=== PATIENT | female | born 1985 | race Caucasian/White ===

== ENCOUNTER 2016-05-13 08:00 | Outpatient (CLI) | payer MEDICARE, MEDICAID | END 2016-05-13 08:01 | disposition home or self-care (01) | DX: Q90.9 Down syndrome, unspecified (principal); E55.9 Vitamin D deficiency, unspecified; E03.9 Hypothyroidism, unspecified ==

== ENCOUNTER 2016-06-11 | Outpatient (CLI) | payer MEDICARE, MEDICAID | END 2016-06-11 05:59 | disposition critical access hospital (66) | DX: R55 Syncope and collapse (principal) | CPT/HCPCS: A0425; A0427 ==

== ENCOUNTER 2016-06-11 06:15 | Emergency (ER) | payer MEDICARE, MEDICAID ==
[2016-06-11] MEDS ORDERED: SODIUM CHLORIDE 0.9% 1,000 ML IV ONE (07:15)
== END 2016-06-11 09:50 | disposition home or self-care (01) ==
DX: R55 Syncope and collapse (principal); J18.9 Pneumonia, unspecified organism; J02.9 Acute pharyngitis, unspecified; Q23.3 Congenital mitral insufficiency; Q90.9 Down syndrome, unspecified; E03.9 Hypothyroidism, unspecified

== ENCOUNTER 2017-05-23 07:46 | Outpatient (CLI) | payer MEDICARE, MEDICAID ==
[2017-05-23 12:28] LABS: BASOPHILS # (AUTO) 0.1 10^3/uL (0.0-0.1); EOSINOPHILS % (AUTO) 0.5 %; HGB - HEMOGLOBIN 13.5 g/dL (12.0-16.0); LYMPHOCYTES # (AUTO) 1.5 10^3/uL (1.5-3.5); LYMPHOCYTES % (AUTO) 24.3 %; MEAN CORPUSCULAR HEMOGLOBIN 36.2 pg (27.0-31.0); MEAN CORPUSCULAR HGB CONC 34.7 g/dL (32.0-36.0); MEAN CORPUSCULAR VOLUME 104.5 fL (81.0-99.0); MONOCYTES # (AUTO) 0.5 10^3/uL (0.0-1.0); MONOCYTES % (AUTO) 8.4 %; NEUTROPHILS # (AUTO) 4.1 10^3/uL (1.5-6.6); NEUTROPHILS % (AUTO) 65.8 %; PLT - PLATELET COUNT 159 10^3/uL (130-450); RED BLOOD COUNT 3.72 10^6/uL (4.20-5.40); RED CELL DISTRIBUTION WIDTH 12.7 % (12.0-15.0); WHITE BLOOD COUNT 6.3 x10^3/uL (4.8-10.8)
[2017-05-23 12:53] LABS: ALBUMIN 3.5 g/dL (3.2-5.5); ALBUMIN/GLOBULIN RATIO 0.9 (1.0-2.2); ALKALINE PHOSPHATASE 67 IU/L (42-121); ALT ALANINE AMINOTRANSFERASE 22 IU/L (10-60); AST ASPARTATE AMINOTRANSFERASE 22 IU/L (10-42); BILIRUBIN,TOTAL 0.4 mg/dL (0.2-1.0); BUN - BLOOD UREA NITROGEN 17 mg/dL (6-20); CALCIUM 8.4 mg/dL (8.5-10.3); CARBON DIOXIDE - CO2 24 mmol/L (21-32); CHLORIDE 107 mmol/L (101-111); CHOL/HDL RATIO 2.5 (<4.4); CHOLESTEROL 116 mg/dL; CREATININE 0.9 mg/dL (0.4-1.0); GFR - MDRD 74 (>89); GLUCOSE 83 mg/dL (70-100); HDL CHOLESTEROL 46 mg/dL; LDL CHOLESTEROL,CALCULATED 60 mg/dL; LDL/HDL RATIO 1.3 (<4.4); SODIUM 135 mmol/L (135-145); TOTAL PROTEIN 7.6 g/dL (6.7-8.2); VLDL CHOLESTEROL 10 mg/dL
[2017-05-23 12:54] LABS: THYROID STIMULATING HORMONE 3.75 uIU/mL (0.34-5.60)
[2017-05-23 12:56] LABS: FREE T4 (FREE THYROXINE) 1.09 ng/dL (0.58-1.64)
== END 2017-05-23 07:47 | disposition home or self-care (01) ==
LOC: LAB.N 07:46
PROVIDERS: ATTEND Family Medicine
DX: Q90.9 Down syndrome, unspecified (principal); E03.9 Hypothyroidism, unspecified; D53.9 Nutritional anemia, unspecified
CPT/HCPCS: 36415; 80053; 80061; 83721; 84439; 84443; 85025

== ENCOUNTER 2017-12-08 01:30 | Emergency (ER) | payer MEDICARE, MEDICAID ==
[2017-12-08 01:39] VITALS: BP 133/75
[2017-12-08] MEDS ORDERED: ALBUTEROL NEB 2.5 MG/3 ML INH STA (02:12)
[2017-12-08 02:20] LABS: BILIRUBIN,URINE NEGATIVE (NEGATIVE); GLUCOSE, URINE (UA) NEGATIVE (NEGATIVE); KETONES,URINE (UA) NEGATIVE (NEGATIVE); LEUKOCYTE ESTERASE, URINE TRACE (NEGATIVE); NITRITE,URINE NEGATIVE (NEGATIVE); OCCULT BLOOD,URINE TRACE-INTA (NEGATIVE); PROTEIN,URINE TRACE mg/dL (NEGATIVE); UROBILINOGEN,URINE 0.2 (NORMAL) E.U./dL (NORMAL)
[2017-12-08 02:21] LABS: CLARITY,URINE CLEAR (CLEAR)
[2017-12-08 02:27] LABS: BACTERIA,URINE Few /HPF (None Seen); RBC,URINE 0-5 /HPF (0-5); SQUAMOUS EPITHELIAL CELL,UR MOD Squamous (<= Few)
[2017-12-08 02:32] LABS: BASOPHILS # (AUTO) 0.4 10^3/uL (0.0-0.1); BASOPHILS % (AUTO) 2.7 %; EOSINOPHILS % (AUTO) 0.1 %; HGB - HEMOGLOBIN 13.6 g/dL (12.0-16.0); LYMPHOCYTES # (AUTO) 0.8 10^3/uL (1.5-3.5); LYMPHOCYTES % (AUTO) 5.8 %; MEAN CORPUSCULAR HGB CONC 34.7 g/dL (32.0-36.0); MEAN CORPUSCULAR VOLUME 103.7 fL (81.0-99.0); MEAN PLATELET VOLUME 7.7 fL (7.9-10.8); MONOCYTES # (AUTO) 0.7 10^3/uL (0.0-1.0); NEUTROPHILS # (AUTO) 11.8 10^3/uL (1.5-6.6); NEUTROPHILS % (AUTO) 86.4 %; PLT - PLATELET COUNT 188 10^3/uL (130-450); RED BLOOD COUNT 3.78 10^6/uL (4.20-5.40); RED CELL DISTRIBUTION WIDTH 12.6 % (12.0-15.0); WHITE BLOOD COUNT 13.6 x10^3/uL (4.8-10.8)
[2017-12-08 02:40] LABS: ALBUMIN 3.7 g/dL (3.2-5.5); ALBUMIN/GLOBULIN RATIO 0.7 (1.0-2.2); BILIRUBIN,TOTAL 1.1 mg/dL (0.2-1.0); CALCIUM 8.8 mg/dL (8.5-10.3); CREATININE 0.9 mg/dL (0.4-1.0); TOTAL PROTEIN 8.7 g/dL (6.7-8.2)
--- NOTE | 2017-12-08 03:00 | XRAY Report ---
Procedure Date: 12/08/2017 Accession Number: [id number] / [id number] Procedure: XR - Chest 1 View X-Ray CPT Code: 63373 FULL RESULT: EXAM: CHEST RADIOGRAPHY EXAM DATE: 12/08/2017 02:48 AM. CLINICAL HISTORY: Shortness of breath, history of aortic and mitral regurgitation. COMPARISON: CHEST 2 VIEW PA/LAT 06/11/2016. TECHNIQUE: 1 view. FINDINGS: Lungs/Pleura: Diffuse mild interstitial opacities. No large effusion. No gross pneumothorax. Mediastinum: Mild cardiomegaly. No mediastinal shift. Other: Low volumes. Prior median sternotomy. Stable scoliosis. IMPRESSION: Mild CHF and low volumes. RADIA
--- NOTE | 2017-12-08 03:50 | ED Physician Documentation ---
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 Mother states that the symptoms started over the last few days. Mother states that the patient gets yearly echos and has cardiac follow up in 2 weeks. Review of Systems Constitutional: denies: Fever, Chills Eyes: reports: Reviewed and negative Ears: reports: Reviewed and negative Cardiac: reports: Pedal edema. denies: Chest pain / pressure, Palpitations Respiratory: reports: Dyspnea GI: reports: Abdominal Pain. denies: Nausea, Vomiting, Constipation, Diarrhea : reports: Frequency Musculoskeletal: reports: Back pain Neurologic: denies: Focal weakness PD PAST MEDICAL HISTORY - Past Medical History Past Medical History: Yes Cardiovascular: None Respiratory: None Endocrine/Autoimmune: None, HyPOthyroidism Musculoskeletal: Scoliosis Other Past Medical History: Mitral valve leak & Aortic valve leak. - Past Surgical History Past Surgical History: Yes - Present Medications Home Medications: Ambulatory Orders Medication Instructions Recorded Confirmed Multivit, Iron, Min #4, FA 1 each PO DAILY 08/28/12 06/11/16 [Multichew Chewable Tablet] Simvastatin [Zocor] 10 mg PO DAILY 08/28/12 06/11/16 Cetyl Alc/Stearyl Alc/Pg/Sls 1 applic TOP BID 09/15/14 06/11/16 [Cetaphil Cream] Cholecalciferol (Vitamin D3) 1 tab PO DAILY 09/15/14 06/11/16 [Vitamin D-3] Levothyroxine Sodium 1 tab PO DAILY 09/15/14 06/11/16 Amoxicillin 500 mg PO TID 06/11/16 06/11/16 Ascorbic Acid [Vitamin C] 500 mg PO DAILY 06/11/16 06/11/16 Ethynodiol D-Ethinyl Estradiol 1 tab PO DAILY 06/11/16 06/11/16 [Zovia 1-35E Tablet] Cephalexin [Keflex] 500 mg PO BID 7 Days capsule 12/08/17 - Allergies Allergies/Adverse Reactions: Allergies Allergy/AdvReac Type Severity Reaction Status Date / Time adhesive AdvReac Rash Verified 09/15/14 04:47 - Social History Does the pt smoke?: No Smoking Status: Never smoker Does the pt drink ETOH?: No Does the pt have substance abuse?: No - Immunizations Immunizations are current?: Yes - POLST Patient has POLST: No PD ED PE NORMAL - Vitals Vital signs reviewed: Yes - General General: Alert and oriented X 3 - HEENT HEENT: Atraumatic - Abdomen Abdomen: Soft, Non tender, Non distended - Neuro Neuro: Alert and oriented X 3, No motor deficit Eye Opening: Spontaneous PD ED PE EXPANDED - Neck Neck: JVD present - Cardiac Cardiac: Murmur Present - Respiratory Respiratory: Decreased breath sounds, Right lower lobe, Left lower lobe - Back Back: CVA TTP right Results - Vitals Vitals: Vital Signs - 24 hr 12/08/17 12/08/17 01:36 02:25 Temperature 36.6 C Heart Rate 99 84 Respiratory 18 22 Rate Blood Pressure 133/75 H O2 Saturation 94 Oxygen O2 Source Room air - Labs Labs: Laboratory Tests 12/08/17 12/08/17 12/08/17 02:10 02:20 02:20 WBC 13.6 H RBC 3.78 L Hgb 13.6 Hct 39.2 MCV 103.7 H MCH 36.0 H MCHC 34.7 RDW 12.6 Plt Count 188 MPV 7.7 L Neut # (Auto) 11.8 H Lymph # (Auto) 0.8 L [place] # (Auto) 0.7 Eos # (Auto) 0.0 Baso # (Auto) 0.4 H Absolute Nucleated RBC 0.00 Nucleated RBC % 0.0 Sodium 135 Potassium 3.9 Chloride 102 Carbon Dioxide 24 Anion Gap 9.0 BUN 13 Creatinine 0.9 Estimated GFR (MDRD) 74 L Glucose 148 H Calcium 8.8 Total Bilirubin 1.1 H AST 24 ALT 31 Alkaline Phosphatase 121 B-Natriuretic Peptide Total Protein 8.7 H Albumin 3.7 Globulin 5.0 H Albumin/Globulin Ratio 0.7 L Lipase 27 Urine Color YELLOW Urine Clarity CLEAR Urine pH 6.0 Ur Specific [place] >=1.030 H Urine Protein TRACE Urine Glucose (UA) NEGATIVE Urine Ketones NEGATIVE Urine Occult Blood TRACE-INTA Urine Nitrite NEGATIVE Urine Bilirubin NEGATIVE Urine Urobilinogen 0.2 (NORMAL) Ur Leukocyte Esterase TRACE H Urine RBC 0-5 Urine WBC 4-5 Ur Squamous Epith Cells MOD Squamous H Urine Bacteria Few Ur Microscopic Review INDICATED Urine Culture Comments NOT INDICATED 12/08/17 02:20 WBC RBC Hgb Hct MCV MCH MCHC RDW Plt Count MPV Neut # (Auto) Lymph # (Auto) [place] # (Auto) Eos # (Auto) Baso # (Auto) Absolute Nucleated RBC Nucleated RBC % Sodium Potassium Chloride Carbon Dioxide Anion Gap BUN Creatinine Estimated GFR (MDRD) Glucose Calcium Total Bilirubin AST ALT Alkaline Phosphatase B-Natriuretic Peptide 146 H Total Protein Albumin Globulin Albumin/Globulin Ratio Lipase Urine Color Urine Clarity Urine pH Ur Specific [place] Urine Protein Urine Glucose (UA) Urine Ketones Urine Occult Blood Urine Nitrite Urine Bilirubin Urine Urobilinogen Ur Leukocyte Esterase Urine RBC Urine WBC Ur Squamous Epith Cells Urine Bacteria Ur Microscopic Review Urine Culture Comments - Rads (name of study) chest x-ray Radiology: Final report received (mild chf) PD MEDICAL DECISION MAKING - ED course Complexity details: reviewed old records, reviewed results, re-evaluated patient , considered differential, d/w patient, d/w family ED course: Patient was seen and examined at bedside. iv access was gained and labs were drawn. patient had a history of asthma and there is a lot of smoke in the air and patient was treated with nebulizer treatment with little relief. chest x- ray was performed and showed mild pulmonary edema. Patient was started on keflex for uti. Patient's ict developer was paged but no call back was received. findings were discussed with the mother who stated she did not want to start and diuretic without cardiology consult. She stated that she would call the doctor today and that she would take the patient home. Patient was saturating well on room air and was stable for discharge with outpatient follow up. - Sepsis Event Vital Signs: Vital Signs - 24 hr 12/08/17 12/08/17 01:36 02:25 Temperature 36.6 C Heart Rate 99 84 Respiratory 18 22 Rate Blood Pressure 133/75 H O2 Saturation 94 Oxygen O2 Source Room air Departure - Departure Disposition: 01 Home, Self Care Clinical Impression: Urinary tract infection, Pulmonary edema Condition: Stable Instructions: ED UTI Cystitis Female Follow-Up: Gravatt,Antoine H, MD [Primary Care Provider] - Tomorrow Prescriptions: Cephalexin [Keflex] 500 mg PO BID 7 Days capsule Comments: Your diagnostics today showed a couple of things. You likely are developing a urinary tract infection for which you are being started on antibiotics. You were also to have fluid in your lungs (pulmonary edema) which is likely causing your daughter's shortness of breath. You may need to move up the appointment with the ict developer. It is important that you call them today to schedule a follow up appointment. You may return to the emergency department at any time for new, worsening or uncontrollable symptoms. Discharge Date/Time: 12/08/17 05:16
[2017-12-08] MEDS ORDERED: cephALEXin 250 MG CAPSULE PO STA (04:30)
[2017-12-08] MEDS ORDERED: ACETAMINOPHEN 325 MG TABLET PO STA (04:30)
== END 2017-12-08 05:16 | disposition home or self-care (01) ==
LOC: ED 01:30
DX: N39.0 Urinary tract infection, site not specified (principal); J81.1 Chronic pulmonary edema; Q90.9 Down syndrome, unspecified
CPT/HCPCS: 36415; 71045; 80053; 81001; 83690; 83880; 85025; 94640; 99283; A9270; 81003; 87086

== ENCOUNTER 2017-12-21 09:57 | Outpatient (CLI) | payer MEDICARE, MEDICAID ==
[2017-12-21 13:43] LABS: BASOPHILS # (AUTO) 0.1 10^3/uL (0.0-0.1); BASOPHILS % (AUTO) 1.3 %; EOSINOPHILS # (AUTO) 0.1 10^3/uL (0.0-0.7); EOSINOPHILS % (AUTO) 1.2 %; HGB - HEMOGLOBIN 14.3 g/dL (12.0-16.0); LYMPHOCYTES # (AUTO) 1.2 10^3/uL (1.5-3.5); LYMPHOCYTES % (AUTO) 18.5 %; MEAN CORPUSCULAR HEMOGLOBIN 35.5 pg (27.0-31.0); MEAN CORPUSCULAR VOLUME 104.4 fL (81.0-99.0); MEAN PLATELET VOLUME 7.6 fL (7.9-10.8); MEAN RETIC VALUE 130.5; MONOCYTES # (AUTO) 0.5 10^3/uL (0.0-1.0); MONOCYTES % (AUTO) 8.1 %; NEUTROPHILS # (AUTO) 4.5 10^3/uL (1.5-6.6); NEUTROPHILS % (AUTO) 70.9 %; PLT - PLATELET COUNT 422 10^3/uL (130-450); RED BLOOD COUNT 4.01 10^6/uL (4.20-5.40); RED CELL DISTRIBUTION WIDTH 12.7 % (12.0-15.0); WHITE BLOOD COUNT 6.3 x10^3/uL (4.8-10.8)
== END 2017-12-21 09:58 | disposition home or self-care (01) ==
LOC: LAB.N 09:57
PROVIDERS: ATTEND Family Medicine
DX: Z76.89 Persons encountering health services in other specified circumstances (principal); I26.99 Other pulmonary embolism without acute cor pulmonale; D53.9 Nutritional anemia, unspecified
CPT/HCPCS: 36415; 82728; 85025; 85044

== ENCOUNTER 2017-12-29 15:37 | Emergency (ER) | payer MEDICARE, MEDICAID ==
--- NOTE | 2017-12-29 16:39 | ED Physician Documentation ---
PD HPI LOWER EXT INJURY - Stated complaint Stated Complaint: R LEG PX/SENT BY DOC - Chief complaint Chief Complaint: General - History obtained from History obtained from: Patient - History of Present Illness PD HPI LOW EXT INJURY LOCATION: Right, Knee (posterior/popliteal area) Type of injury: No: Fall, Twist Timing - onset: How many days ago (2-3 days of pain in right popliteal area. Had been to Cardiology clinic 2 weeks ago with dyspnea and some CHF symptoms.) Worsened by: Palpating, Other (walking) Associated symptoms: No: Weakness, Numbness, Swelling Contributing factors: Anticoagulated (she has been on Xarelto for 2 weeks.) Recently seen: Clinic, Admitted (was in due to PE) Review of Systems Constitutional: denies: Fever, Chills Cardiac: denies: Chest pain / pressure Respiratory: denies: Dyspnea PD PAST MEDICAL HISTORY - Past Medical History Cardiovascular: None Respiratory: None Endocrine/Autoimmune: None, HyPOthyroidism Musculoskeletal: Scoliosis - Past Surgical History Past Surgical History: Yes - Present Medications Home Medications: Ambulatory Orders Medication Instructions Recorded Confirmed Multivit, Iron, Min #4, FA 1 each PO DAILY 08/28/12 06/11/16 [Multichew Chewable Tablet] Cetyl Alc/Stearyl Alc/Pg/Sls 1 applic TOP BID 09/15/14 06/11/16 [Cetaphil Cream] Cholecalciferol (Vitamin D3) 1 tab PO DAILY 09/15/14 06/11/16 [Vitamin D-3] Levothyroxine Sodium 1 tab PO DAILY 09/15/14 06/11/16 Amoxicillin 500 mg PO TID 06/11/16 06/11/16 Enoxaparin [Lovenox] 80 mg SUBQ Q24H #5 syringe 12/29/17 Rivaroxaban [Xarelto] 1 tab PO BID 12/29/17 12/29/17 Warfarin [Coumadin] 5 mg PO DAILY #30 tablet 12/29/17 - Allergies Allergies/Adverse Reactions: Allergies Allergy/AdvReac Type Severity Reaction Status Date / Time adhesive AdvReac Rash Verified 12/29/17 15:44 - Social History Does the pt smoke?: No Smoking Status: Never smoker Does the pt drink ETOH?: No Does the pt have substance abuse?: No - Immunizations Immunizations are current?: Yes - POLST Patient has POLST: No PD ED PE NORMAL - Vitals Vital signs reviewed: Yes - General General: Alert and oriented X 3, No acute distress, Well developed/nourished - Cardiac Cardiac: RRR, No murmur - Respiratory Respiratory: Clear bilaterally - Derm Derm: Normal color, Warm and dry - Extremities Extremities: Other (right calf tender in upper calf/popliteal area) Results - Vitals Vitals: Vital Signs - 24 hr 12/29/17 12/29/17 15:40 18:43 Temperature 36.6 C 36.9 C Heart Rate 88 77 Respiratory 16 12 Rate Blood Pressure 141/79 H 138/87 H O2 Saturation 95 100 Oxygen O2 Source Room air - Rads (name of study) duplex right leg Radiology: Prelim report reviewed (nonocclusive DVT in popliteal area) PD MEDICAL DECISION MAKING - ED course Complexity details: considered differential, d/w patient, d/w family (mom showed how to give injections for the Lovenox. I went with the 1.5 mg/kg daily rather than 1 mg/kg BID to make it easier. ), d/w insurance consultant (Sasha, [facility] - so the concern is that she had had clear U/S of legs in admission that were clear and she has some on U/S with new symptoms, to suggest treatment failure of the Xarelto. So will need to change to another NOAC or Coumadin. Per Cardio wants Coumadin. ) - Sepsis Event Vital Signs: Vital Signs - 24 hr 12/29/17 12/29/17 15:40 18:43 Temperature 36.6 C 36.9 C Heart Rate 88 77 Respiratory 16 12 Rate Blood Pressure 141/79 H 138/87 H O2 Saturation 95 100 Oxygen O2 Source Room air Departure - Departure Disposition: 01 Home, Self Care Clinical Impression: DVT of popliteal vein Qualifiers: Chronicity: acute Laterality: right Qualified Code(s): I82.431 - Acute embolism and thrombosis of right popliteal vein Condition: Stable Record reviewed to determine appropriate education?: Yes Instructions: ED DVT Follow-Up: Antoine Chan MD [Primary Care Provider] - Prescriptions: Enoxaparin [Lovenox] 80 mg SUBQ Q24H #5 syringe Warfarin [Coumadin] 5 mg PO DAILY #30 tablet Comments: Since to have formed a small clot in the leg despite being on the Xarelto, it sounds like it is not effective enough. Stop the Xarelto and instead switch to Coumadin 5 mg daily for now. In order to provide any coagulation over the next several days until the Coumadin becomes effective, we will have you also have a Lovenox injection daily. Follow-up with the cardiology clinic and they will also connect you with the anticoagulation clinic regarding blood testing and dosing for the Coumadin. They should contact you in the next few days. Discharge Date/Time: 12/29/17 18:52
--- NOTE | 2017-12-29 16:40 | Ultrasound Report ---
Reason: pain behind knee for 2-3 days Procedure Date: 12/29/2017 Accession Number: [id number] / [id number] Procedure: US - Duplex Ext Veins Right CPT Code: FULL RESULT: EXAM: RIGHT LOWER EXTREMITY VENOUS ULTRASOUND EXAM DATE: 12/29/2017 04:25 PM. CLINICAL HISTORY: Pain behind knee for 2-3 days. COMPARISON: 05/26/2009 11:13 AM. TECHNIQUE: Real-time sonographic vascular imaging was performed by the hydraulic engineer through the lower extremity utilizing both color-flow and Doppler spectral analysis. Multiple publications sales representative static images were saved for review. FINDINGS: Common Femoral Vein (CFV): Normal. CFV-GSV Junction: Normal. Profunda Femoral Vein (PFV): Normal. Femoral Vein (FV) Prox: Normal. Femoral Vein (FV) Mid: Normal. Femoral Vein (FV) Dist: Normal. Popliteal Vein: Nonocclusive thrombus Posterior Tibial Veins: Normal. Peroneal Veins: Normal. Contralateral Side CFV: Normal. Other: None. IMPRESSION: Nonocclusive thrombus in the right popliteal vein. RADIA The above findings were discussed with Markell Hernandez by Dr. Dayton Jama at 16:38 hrs on 12/29/17.
[2017-12-29] MEDS ORDERED: WARFARIN 5 MG TABLET PO STA (18:14)
[2017-12-29] MEDS ORDERED: ENOXAPARIN 80 MG/0.8 ML SYRINGE SUBQ STA (18:14)
[2017-12-29 18:44] VITALS: BP 138/87
== END 2017-12-29 18:52 | disposition home or self-care (01) ==
LOC: ED 15:37
DX: I82.431 Acute embolism and thrombosis of right popliteal vein (principal); E03.9 Hypothyroidism, unspecified; Z79.01 Long term (current) use of anticoagulants
CPT/HCPCS: 93971; 96372; 99283; 99284; A9270; J1650

== ENCOUNTER 2018-01-02 09:26 | Outpatient (CLI) | payer MEDICARE, MEDICAID ==
[2018-01-02 09:49] LABS: HGB - HEMOGLOBIN 14.1 g/dL (12.0-16.0); MEAN CORPUSCULAR HEMOGLOBIN 35.2 pg (27.0-31.0); MEAN CORPUSCULAR HGB CONC 34.3 g/dL (32.0-36.0); MEAN CORPUSCULAR VOLUME 102.5 fL (81.0-99.0); MEAN PLATELET VOLUME 7.5 fL (7.9-10.8); RED BLOOD COUNT 4.01 10^6/uL (4.20-5.40); RED CELL DISTRIBUTION WIDTH 12.7 % (12.0-15.0); WHITE BLOOD COUNT 4.7 x10^3/uL (4.8-10.8)
[2018-01-02 09:56] LABS: INR 2.2 (0.8-1.2); PT - PROTHROMBIN TIME 24.4 secs (9.9-12.6)
[2018-01-02 09:58] LABS: CREATININE 0.8 mg/dL (0.4-1.0)
== END 2018-01-02 09:27 | disposition home or self-care (01) ==
LOC: LAB 09:26
PROVIDERS: ATTEND Pharmacist Pharmacist Clinician (PhC)/ Clinical Pharmacy Specialist
DX: Z79.01 Long term (current) use of anticoagulants (principal)
CPT/HCPCS: 36415; 82565; 85027; 85610

== ENCOUNTER 2018-01-06 08:42 | Outpatient (CLI) | payer MEDICARE, MEDICAID ==
[2018-01-06 09:46] LABS: INR 2.5 (0.8-1.2); PT - PROTHROMBIN TIME 27.3 secs (9.9-12.6)
== END 2018-01-06 08:43 | disposition home or self-care (01) ==
LOC: LAB 08:42
PROVIDERS: ATTEND Internal Medicine
DX: Z79.01 Long term (current) use of anticoagulants (principal)
CPT/HCPCS: 36415; 85610

== ENCOUNTER 2018-01-09 09:12 | Outpatient (CLI) | payer MEDICARE, MEDICAID ==
[2018-01-09 10:01] LABS: INR 2.7 (0.8-1.2)
== END 2018-01-09 09:13 | disposition home or self-care (01) ==
LOC: LAB 09:12
PROVIDERS: ATTEND Pharmacist Pharmacist Clinician (PhC)/ Clinical Pharmacy Specialist
DX: Z79.01 Long term (current) use of anticoagulants (principal)
CPT/HCPCS: 36415; 85610

== ENCOUNTER 2018-01-16 09:23 | Outpatient (CLI) | payer MEDICARE, MEDICAID | END 2018-01-16 09:24 | disposition home or self-care (01) | LOC: LAB 09:23 | PROVIDERS: ATTEND Pharmacist Pharmacist Clinician (PhC)/ Clinical Pharmacy Specialist | DX: Z79.01 Long term (current) use of anticoagulants (principal) | CPT/HCPCS: 36415; 85610 ==

== ENCOUNTER 2018-01-19 07:57 | Outpatient (CLI) | payer MEDICARE, MEDICAID ==
[2018-01-19 09:29] LABS: INR 3.3 (0.8-1.2); PT - PROTHROMBIN TIME 35.8 secs (9.9-12.6)
== END 2018-01-19 07:58 | disposition home or self-care (01) ==
LOC: LAB 07:57
PROVIDERS: ATTEND Pharmacist Pharmacist Clinician (PhC)/ Clinical Pharmacy Specialist
DX: Z79.01 Long term (current) use of anticoagulants (principal)
CPT/HCPCS: 36415; 85610

== ENCOUNTER 2018-01-23 09:10 | Outpatient (CLI) | payer MEDICARE, MEDICAID ==
[2018-01-23 09:38] LABS: PT - PROTHROMBIN TIME 22.5 secs (9.9-12.6)
== END 2018-01-23 09:11 | disposition home or self-care (01) ==
LOC: LAB 09:10
PROVIDERS: ATTEND Pharmacist Pharmacist Clinician (PhC)/ Clinical Pharmacy Specialist
DX: Z79.01 Long term (current) use of anticoagulants (principal)
CPT/HCPCS: 36415; 85610

== ENCOUNTER 2018-01-30 09:01 | Outpatient (CLI) | payer MEDICARE, MEDICAID ==
[2018-01-30 09:23] LABS: INR 1.9 (0.8-1.2); PT - PROTHROMBIN TIME 21.1 secs (9.9-12.6)
== END 2018-01-30 09:02 | disposition home or self-care (01) ==
LOC: LAB 09:01
PROVIDERS: ATTEND Internal Medicine
DX: Z79.01 Long term (current) use of anticoagulants (principal)
CPT/HCPCS: 36415; 85610

== ENCOUNTER 2018-02-08 08:34 | Outpatient (CLI) | payer MEDICARE, MEDICAID ==
[2018-02-08 09:11] LABS: INR 2.1 (0.8-1.2); PT - PROTHROMBIN TIME 22.9 secs (9.9-12.6)
== END 2018-02-08 08:35 | disposition home or self-care (01) ==
LOC: LAB 08:34
PROVIDERS: ATTEND Pharmacist Pharmacist Clinician (PhC)/ Clinical Pharmacy Specialist
DX: Z79.01 Long term (current) use of anticoagulants (principal)
CPT/HCPCS: 36415; 85610

== ENCOUNTER 2018-02-15 08:33 | Outpatient (CLI) | payer MEDICARE, MEDICAID | END 2018-02-15 08:34 | disposition home or self-care (01) | LOC: LAB 08:33 | PROVIDERS: ATTEND Pharmacist Pharmacist Clinician (PhC)/ Clinical Pharmacy Specialist | DX: Z79.01 Long term (current) use of anticoagulants (principal) | CPT/HCPCS: 36415; 85610 ==

== ENCOUNTER 2018-02-22 08:27 | Outpatient (CLI) | payer MEDICARE, MEDICAID ==
[2018-02-22 09:09] LABS: INR 2.2 (0.8-1.2); PT - PROTHROMBIN TIME 24.1 secs (9.9-12.6)
== END 2018-02-22 08:28 | disposition home or self-care (01) ==
LOC: LAB 08:27
PROVIDERS: ATTEND Pharmacist Pharmacist Clinician (PhC)/ Clinical Pharmacy Specialist
DX: Z79.01 Long term (current) use of anticoagulants (principal)
CPT/HCPCS: 36415; 85610

== ENCOUNTER 2018-03-08 07:34 | Emergency (ER) | payer MEDICARE, MEDICAID ==
[2018-03-08 07:52] VITALS: BP 135/84
--- NOTE | 2018-03-08 08:04 | ED Physician Documentation ---
PD HPI CHEST PAIN - Stated complaint Stated Complaint: CHEST PX - Chief complaint Chief Complaint: Cardiac - History obtained from History obtained from: Patient - History of Present Illness Timing - onset: Last night Timing - onset during: Light activity Timing - duration: Minutes Timing - details: Abrupt onset, Still present, Intermittant Quality: Aching, Sharp Location: Right chest Radiation: No: Jaw, Neck, Back Improved by: Rest Worsened by: Inspiration, Movement. No: Eating, Palpation Associated symptoms: No: Shortness of air, Diaphoresis, Nausea, Vomiting Similar symptoms before: Diagnosis (had some similar pains though with dyspnea, with prior PE. Is on Coumadin.) Recently seen: Not recently seen Review of Systems Constitutional: denies: Fever, Chills Nose: denies: Rhinorrhea / runny nose, Congestion Throat: denies: Sore throat Cardiac: reports: Chest pain / pressure. denies: Palpitations, Pedal edema, Calf pain Respiratory: denies: Cough, Wheezing GI: denies: Abdominal Pain, Nausea, Vomiting Skin: denies: Rash, Lesions Musculoskeletal: denies: Extremity pain Neurologic: denies: Generalized weakness, Focal weakness, Numbness, Near syncope PD PAST MEDICAL HISTORY - Past Medical History Cardiovascular: None Respiratory: None Endocrine/Autoimmune: None, HyPOthyroidism Musculoskeletal: Scoliosis Other Past Medical History: Trisomy 21 - Past Surgical History Past Surgical History: Yes - Present Medications Home Medications: Ambulatory Orders Medication Instructions Recorded Confirmed Multivit, Iron, Min #4, FA 1 each PO DAILY 08/28/12 06/11/16 [Multichew Chewable Tablet] Cetyl Alc/Stearyl Alc/Pg/Sls 1 applic TOP BID 09/15/14 06/11/16 [Cetaphil Cream] Cholecalciferol (Vitamin D3) 1 tab PO DAILY 09/15/14 06/11/16 [Vitamin D-3] Levothyroxine Sodium 1 tab PO DAILY 09/15/14 06/11/16 Amoxicillin 500 mg PO TID 06/11/16 06/11/16 Enoxaparin [Lovenox] 80 mg SUBQ Q24H #5 syringe 12/29/17 Rivaroxaban [Xarelto] 1 tab PO BID 12/29/17 12/29/17 Warfarin [Coumadin] 5 mg PO DAILY #30 tablet 12/29/17 - Allergies Allergies/Adverse Reactions: Allergies Allergy/AdvReac Type Severity Reaction Status Date / Time adhesive AdvReac Rash Verified 12/29/17 15:44 - Social History Does the pt smoke?: No Smoking Status: Never smoker Does the pt drink ETOH?: No Does the pt have substance abuse?: No - Immunizations Immunizations are current?: Yes - POLST Patient has POLST: No PD ED PE NORMAL - Vitals Vital signs reviewed: Yes - General General: Alert and oriented X 3, No acute distress, Well developed/nourished - HEENT HEENT: Ears normal, Pharynx benign - Neck Neck: Supple, no meningeal sign, No adenopathy - Cardiac Cardiac: RRR, No murmur - Respiratory Respiratory: Clear bilaterally, Other (no chestwall tenderness nor rash) - Abdomen Abdomen: Soft, Non tender - Derm Derm: Normal color, Warm and dry, No rash - Extremities Extremities: No deformity, No tenderness to palpate, No edema, No calf tenderness / cord - Neuro Neuro: Alert and oriented X 3, No motor deficit, Normal speech Results - Vitals Vitals: Vital Signs - 24 hr 03/08/18 07:44 Temperature 36.6 C Heart Rate 79 Respiratory 16 Rate Blood Pressure 135/84 H O2 Saturation 98 Oxygen O2 Source Room air - Labs Labs: Laboratory Tests 03/08/18 03/08/18 03/08/18 08:32 08:32 08:32 WBC 5.5 RBC 4.03 L Hgb 14.1 Hct 41.3 MCV 102.5 H MCH 35.0 H MCHC 34.2 RDW 14.0 Plt Count 230 MPV 7.9 Neut # (Auto) 3.9 Lymph # (Auto) 1.1 L [place] # (Auto) 0.5 Eos # (Auto) 0.1 Baso # (Auto) 0.0 Absolute Nucleated RBC 0.00 Nucleated RBC % 0.0 PT 20.0 H INR 1.8 H Sodium 138 Potassium 3.7 Chloride 105 Carbon Dioxide 25 Anion Gap 8.0 BUN 17 Creatinine 0.8 Estimated GFR (MDRD) 84 L Glucose 74 Calcium 9.1 Total Bilirubin 0.7 AST 23 ALT 29 Alkaline Phosphatase 101 Troponin I B-Natriuretic Peptide Total Protein 8.3 H Albumin 4.1 Globulin 4.2 Albumin/Globulin Ratio 1.0 Lipase 38 03/08/18 03/08/18 08:32 08:32 WBC RBC Hgb Hct MCV MCH MCHC RDW Plt Count MPV Neut # (Auto) Lymph # (Auto) [place] # (Auto) Eos # (Auto) Baso # (Auto) Absolute Nucleated RBC Nucleated RBC % PT INR Sodium Potassium Chloride Carbon Dioxide Anion Gap BUN Creatinine Estimated GFR (MDRD) Glucose Calcium Total Bilirubin AST ALT Alkaline Phosphatase Troponin I < 0.04 B-Natriuretic Peptide 107 H Total Protein Albumin Globulin Albumin/Globulin Ratio Lipase - Rads (name of study) chest xray Radiology: Prelim report reviewed, EMP read contemporaneously (normal) PD MEDICAL DECISION MAKING - ED course Complexity details: reviewed results (CXR is clear), considered differential (should not be PE if on Warfarin. CXR to eval for lung changes. ), d/w patient Departure - Departure Disposition: 01 Home, Self Care Clinical Impression: Anterior chest wall pain, Anticoagulant long-term use Condition: Stable Record reviewed to determine appropriate education?: Yes Instructions: ED Chest Pain NonCardiac Follow-Up: Antoine Chan MD [Primary Care Provider] - Comments: Use Tylenol every 4-6 hours if needed for pains. I think the chest pain Whitley is having is musculoskeletal. No signs of heart failure or lung causes of it. Your INR is slightly low at 1.8. I presume he would get direction from the anticoagulation clinic regarding any extra doses or adjustments. If you do not hear from them you could just take an extra dose of your Coumadin tonight and continue the normal dosing. Drink lots of fluids and maintain your current medications. Discharge Date/Time: 03/08/18 10:10
[2018-03-08] MEDS ORDERED: ACETAMINOPHEN 325 MG TABLET PO STA (08:22)
[2018-03-08 08:40] LABS: BASOPHILS % (AUTO) 0.8 %; EOSINOPHILS # (AUTO) 0.1 10^3/uL (0.0-0.7); HGB - HEMOGLOBIN 14.1 g/dL (12.0-16.0); LYMPHOCYTES # (AUTO) 1.1 10^3/uL (1.5-3.5); LYMPHOCYTES % (AUTO) 19.1 %; MEAN CORPUSCULAR HGB CONC 34.2 g/dL (32.0-36.0); MEAN CORPUSCULAR VOLUME 102.5 fL (81.0-99.0); MEAN PLATELET VOLUME 7.9 fL (7.9-10.8); MONOCYTES # (AUTO) 0.5 10^3/uL (0.0-1.0); MONOCYTES % (AUTO) 8.8 %; NEUTROPHILS # (AUTO) 3.9 10^3/uL (1.5-6.6); NEUTROPHILS % (AUTO) 70.3 %; PLT - PLATELET COUNT 230 10^3/uL (130-450); RED BLOOD COUNT 4.03 10^6/uL (4.20-5.40); WHITE BLOOD COUNT 5.5 x10^3/uL (4.8-10.8)
[2018-03-08 08:53] LABS: ALBUMIN 4.1 g/dL (3.2-5.5); BILIRUBIN,TOTAL 0.7 mg/dL (0.2-1.0); CALCIUM 9.1 mg/dL (8.5-10.3); CREATININE 0.8 mg/dL (0.4-1.0); TOTAL PROTEIN 8.3 g/dL (6.7-8.2)
[2018-03-08 09:09] LABS: INR 1.8 (0.8-1.2)
--- NOTE | 2018-03-08 09:10 | XRAY Report ---
Reason: anterior sternal chest pain Procedure Date: 03/08/2018 Accession Number: [id number] / [id number] Procedure: XR - Chest 2 View X-Ray CPT Code: 05728 FULL RESULT: EXAM: CHEST RADIOGRAPHY EXAM DATE: 03/08/2018 08:48 AM. CLINICAL HISTORY: Anterior sternal chest pain. COMPARISON: CHEST 1 VIEW 12/08/2017 2:36 AM. TECHNIQUE: 2 views. FINDINGS: Lungs/Pleura: No focal opacities evident. No pleural effusion. No pneumothorax. Normal volumes. Mediastinum: Heart and mediastinal contours are stable, borderline cardiomegaly and abnormal shape, possibly due to scoliosis. Other: Dextroconvex thoracic scoliosis appears similar to November 2017. Sternotomy changes are redemonstrated, appearance suggestive of pediatric intervention. IMPRESSION: No acute cardiopulmonary abnormality. Abnormal cardiomediastinal silhouette and small median sternotomy wires may suggest prior congenital cardiac surgery, correlate to history. RADIA
== END 2018-03-08 10:10 | disposition home or self-care (01) ==
LOC: ED 07:34
DX: R07.89 Other chest pain (principal); I45.10 Unspecified right bundle-branch block; E03.9 Hypothyroidism, unspecified; Q90.9 Down syndrome, unspecified; Z86.711 Personal history of pulmonary embolism; Z79.01 Long term (current) use of anticoagulants
CPT/HCPCS: 36415; 71046; 80053; 83690; 83880; 84484; 85025; 85610; 93005; 99283; A9270

== ENCOUNTER 2018-03-22 08:37 | Outpatient (CLI) | payer MEDICARE, MEDICAID ==
[2018-03-22 09:20] LABS: INR 2.8 (0.8-1.2); PT - PROTHROMBIN TIME 31.3 secs (9.9-12.6)
== END 2018-03-22 08:38 | disposition home or self-care (01) ==
LOC: LAB 08:37
PROVIDERS: ATTEND Pharmacist Pharmacist Clinician (PhC)/ Clinical Pharmacy Specialist
DX: Z79.01 Long term (current) use of anticoagulants (principal)
CPT/HCPCS: 36415; 85610

== ENCOUNTER 2018-04-05 09:23 | Outpatient (CLI) | payer MEDICARE, MEDICAID ==
[2018-04-05 09:47] LABS: INR 2.2 (0.8-1.2); PT - PROTHROMBIN TIME 24.6 secs (9.9-12.6)
== END 2018-04-05 09:24 | disposition home or self-care (01) ==
LOC: LAB 09:23
PROVIDERS: ATTEND Pharmacist Pharmacist Clinician (PhC)/ Clinical Pharmacy Specialist
DX: Z79.01 Long term (current) use of anticoagulants (principal)
CPT/HCPCS: 36415; 85610

== ENCOUNTER 2018-05-03 09:02 | Outpatient (CLI) | payer MEDICARE, MEDICAID ==
[2018-05-03 09:37] LABS: INR 2.2 (0.8-1.2); PT - PROTHROMBIN TIME 24.7 secs (9.9-12.6)
== END 2018-05-03 09:03 | disposition home or self-care (01) ==
LOC: LAB 09:02
PROVIDERS: ATTEND Pharmacist Pharmacist Clinician (PhC)/ Clinical Pharmacy Specialist
DX: Z79.01 Long term (current) use of anticoagulants (principal)
CPT/HCPCS: 36415; 85610

== ENCOUNTER 2018-06-07 08:45 | Outpatient (CLI) | payer MEDICARE, MEDICAID ==
[2018-06-07 09:36] LABS: INR 2.2 (0.8-1.2); PT - PROTHROMBIN TIME 24.6 secs (9.9-12.6)
== END 2018-06-07 08:46 | disposition home or self-care (01) ==
LOC: LAB 08:45
PROVIDERS: ATTEND Pharmacist Pharmacist Clinician (PhC)/ Clinical Pharmacy Specialist
DX: Z79.01 Long term (current) use of anticoagulants (principal)
CPT/HCPCS: 36415; 85610

== ENCOUNTER 2018-06-15 07:59 | Outpatient (CLI) | payer MEDICARE, MEDICAID ==
[2018-06-15 12:35] LABS: BASOPHILS # (AUTO) 0.1 10^3/uL (0.0-0.1); BASOPHILS % (AUTO) 1.4 %; EOSINOPHILS # (AUTO) 0.1 10^3/uL (0.0-0.7); HGB - HEMOGLOBIN 14.3 g/dL (12.0-16.0); LYMPHOCYTES # (AUTO) 1.1 10^3/uL (1.5-3.5); LYMPHOCYTES % (AUTO) 21.6 %; MEAN CORPUSCULAR HEMOGLOBIN 35.6 pg (27.0-31.0); MEAN CORPUSCULAR HGB CONC 34.6 g/dL (32.0-36.0); MEAN CORPUSCULAR VOLUME 103.1 fL (81.0-99.0); MEAN PLATELET VOLUME 8.4 fL (7.9-10.8); MONOCYTES # (AUTO) 0.4 10^3/uL (0.0-1.0); MONOCYTES % (AUTO) 8.8 %; NEUTROPHILS # (AUTO) 3.3 10^3/uL (1.5-6.6); NEUTROPHILS % (AUTO) 67.2 %; PLT - PLATELET COUNT 230 10^3/uL (130-450); RED BLOOD COUNT 4.01 10^6/uL (4.20-5.40); RED CELL DISTRIBUTION WIDTH 13.9 % (12.0-15.0)
[2018-06-15 12:55] LABS: CHOL/HDL RATIO 3.5 (<4.4); CHOLESTEROL 176 mg/dL; HDL CHOLESTEROL 51 mg/dL
[2018-06-15 13:20] LABS: THYROID STIMULATING HORMONE 1.46 uIU/mL (0.34-5.60)
[2018-06-15 13:23] LABS: FREE T4 (FREE THYROXINE) 1.03 ng/dL (0.58-1.64)
[2018-06-15 13:43] LABS: LDL CHOLESTEROL,DIRECT 129 mg/dL; LDLD/HDL RATIO 2.5 (<4.4)
[2018-06-15 13:45] LABS: DIFFERENTIAL COMMENT MANUAL=AUTO DIFF
[2018-06-15 14:09] LABS: FOLATE > 49.60 ng/mL (5.90 - >24.8)
== END 2018-06-15 23:59 | disposition home or self-care (01) ==
LOC: LAB.N 07:59
PROVIDERS: ATTEND Physician Assistant Medical
DX: E78.5 Hyperlipidemia, unspecified (principal); D53.9 Nutritional anemia, unspecified; E03.9 Hypothyroidism, unspecified; Z02.5 Encounter for examination for participation in sport
CPT/HCPCS: 36415; 80061; 82607; 82746; 83721; 84439; 84443; 85025

== ENCOUNTER 2018-07-24 14:00 | Emergency (ER) | payer MEDICARE, MEDICAID ==
--- NOTE | 2018-07-24 16:22 | Ultrasound Report ---
Reason: RLE pain Procedure Date: 07/24/2018 Accession Number: [id number] / [id number] Procedure: US - Duplex Ext Veins Right CPT Code: FULL RESULT: EXAM: RIGHT LOWER EXTREMITY VENOUS ULTRASOUND EXAM DATE: 07/24/2018 03:30 PM. CLINICAL HISTORY: RLE pain. COMPARISON: DUPLEX EXT VEINS RIGHT 12/29/2017 3:55 PM. TECHNIQUE: Real-time sonographic vascular imaging was performed by the tar heater operator through the lower extremity utilizing both color-flow and Doppler spectral analysis. Multiple uniforms sales representative static images were saved for review. FINDINGS: Common Femoral Vein (CFV): Normal. CFV-GSV Junction: Normal. Profunda Femoral Vein (PFV): Normal. Femoral Vein (FV) Prox: Normal. Femoral Vein (FV) Mid: Normal. Femoral Vein (FV) Dist: Normal. Popliteal Vein: Normal. Posterior Tibial Veins: Normal. Peroneal Veins: Normal. Contralateral Side CFV: Normal. Other: None. IMPRESSION: No evidence for deep venous thrombosis in the right lower extremity. RADIA
--- NOTE | 2018-07-24 17:01 | ED Physician Documentation ---
PD HPI LOWER EXT INJURY - Stated complaint Stated Complaint: R LEG PX - Chief complaint Chief Complaint: Ext Problem - History obtained from History obtained from: Patient, Family (mom) - History of Present Illness PD HPI LOW EXT INJURY LOCATION: Right (Without specific injury she developed right anterior knee pain today. 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.) Review of Systems Cardiac: denies: Chest pain / pressure, Palpitations Respiratory: denies: Dyspnea, Cough GI: denies: Abdominal Pain PD PAST MEDICAL HISTORY - Past Medical History Cardiovascular: None Respiratory: None Endocrine/Autoimmune: None, HyPOthyroidism Musculoskeletal: Scoliosis - Past Surgical History Past Surgical History: Yes - Present Medications Home Medications: Ambulatory Orders Medication Instructions Recorded Confirmed Multivit, Iron, Min #4, FA 1 each PO DAILY 08/28/12 06/11/16 [Multichew Chewable Tablet] Cetyl Alc/Stearyl Alc/Pg/Sls 1 applic TOP BID 09/15/14 06/11/16 [Cetaphil Cream] Cholecalciferol (Vitamin D3) 1 tab PO DAILY 09/15/14 06/11/16 [Vitamin D-3] Levothyroxine Sodium 1 tab PO DAILY 09/15/14 06/11/16 Amoxicillin 500 mg PO TID 06/11/16 06/11/16 Enoxaparin [Lovenox] 80 mg SUBQ Q24H #5 syringe 12/29/17 Rivaroxaban [Xarelto] 1 tab PO BID 12/29/17 12/29/17 Warfarin [Coumadin] 5 mg PO DAILY #30 tablet 12/29/17 - Allergies Allergies/Adverse Reactions: Allergies Allergy/AdvReac Type Severity Reaction Status Date / Time adhesive AdvReac Rash Verified 07/24/18 14:23 - Social History Does the pt smoke?: No Smoking Status: Never smoker Does the pt drink ETOH?: No Does the pt have substance abuse?: No - Immunizations Immunizations are current?: Yes - POLST Patient has POLST: No PD ED PE NORMAL - Vitals Vital signs reviewed: Yes - General General: Alert and oriented X 3, No acute distress - Extremities Extremities: Other (No tenderness of the knee, no effusion, no limited range of motion, no calf tenderness or popliteal tenderness. No skin changes.) Results - Vitals Vitals: Vital Signs - 24 hr 07/24/18 14:19 Temperature 35.6 C L Heart Rate 80 Respiratory 14 Rate Blood Pressure 140/84 H O2 Saturation 97 Oxygen O2 Source Room air - Rads (name of study) RLE DVt sono Radiology: Final report received (neg for DVT) Departure - Departure Disposition: 01 Home, Self Care Clinical Impression: Pain in extremity Qualifiers: Extremity pain location: lower extremity Laterality: right Qualified Code(s): M79.604 - Pain in right leg Condition: Good Record reviewed to determine appropriate education?: Yes Instructions: ED Acute Pain [facility] Comments: Follow-up with your waste disposal leakage tester as scheduled. Return for new or worsening symptoms. Your blood pressure was elevated today on check into the emergency department. This does not mean that you have hypertension, it is a common phenomenon to come to the emergency department and have elevated blood pressure. I recommend that you see your primary care physician within the week to have it rechecked when you are feeling better.
[2018-07-24 17:06] VITALS: BP 118/65
== END 2018-07-24 17:06 | disposition home or self-care (01) ==
LOC: ED 14:00
DX: M79.604 Pain in right leg (principal); R03.0 Elevated blood-pressure reading, without diagnosis of hypertension; E03.9 Hypothyroidism, unspecified; Z86.718 Personal history of other venous thrombosis and embolism; Z86.711 Personal history of pulmonary embolism; Z79.01 Long term (current) use of anticoagulants
CPT/HCPCS: 99282; 99283

== ENCOUNTER → 2019-05-18 | Outpatient (CLI) | payer MEDICARE, MEDICAID ==
[2019-05-18 18:49] LABS: BASOPHILS # (AUTO) 0.1 10^3/uL (0.0-0.1); EOSINOPHILS % (AUTO) 0.8 %; HGB - HEMOGLOBIN 15.1 g/dL (12.0-16.0); LYMPHOCYTES # (AUTO) 1.3 10^3/uL (1.5-3.5); LYMPHOCYTES % (AUTO) 26.5 %; MEAN CORPUSCULAR HEMOGLOBIN 35.3 pg (27.0-31.0); MEAN CORPUSCULAR HGB CONC 33.6 g/dL (32.0-36.0); MEAN CORPUSCULAR VOLUME 105.1 fL (81.0-99.0); MEAN PLATELET VOLUME 9.9 fL (7.9-10.8); MONOCYTES # (AUTO) 0.5 10^3/uL (0.0-1.0); MONOCYTES % (AUTO) 9.8 %; NEUTROPHILS % (AUTO) 61.5 %; PLT - PLATELET COUNT 242 10^3/uL (130-450); RED BLOOD COUNT 4.28 10^6/uL (4.20-5.40); RED CELL DISTRIBUTION WIDTH 13.6 % (12.0-15.0); WHITE BLOOD COUNT 4.8 x10^3/uL (4.8-10.8)
[2019-05-18 18:55] LABS: ALBUMIN 4.2 g/dL (3.2-5.5); ALBUMIN/GLOBULIN RATIO 0.9 (1.0-2.2); ALKALINE PHOSPHATASE 109 IU/L (42-121); ALT ALANINE AMINOTRANSFERASE 30 IU/L (10-60); AST ASPARTATE AMINOTRANSFERASE 23 IU/L (10-42); BILIRUBIN,TOTAL 0.9 mg/dL (0.2-1.0); BUN - BLOOD UREA NITROGEN 17 mg/dL (6-20); CALCIUM 9.1 mg/dL (8.5-10.3); CARBON DIOXIDE - CO2 25 mmol/L (21-32); CHLORIDE 101 mmol/L (101-111); CHOL/HDL RATIO 3.6 (<4.4); CHOLESTEROL 188 mg/dL; CREATININE 0.9 mg/dL (0.4-1.0); GFR - MDRD 73 (>89); GLUCOSE 78 mg/dL (70-100); HDL CHOLESTEROL 52 mg/dL; LDL CHOLESTEROL,CALCULATED 128 mg/dL; LDL/HDL RATIO 2.5 (<4.4); SODIUM 137 mmol/L (135-145); TOTAL PROTEIN 8.8 g/dL (6.7-8.2); VLDL CHOLESTEROL 8 mg/dL
== END ==
LOC: LAB.N 08:00
PROVIDERS: ATTEND Physician Assistant Medical
DX: E78.5 Hyperlipidemia, unspecified (principal); E03.9 Hypothyroidism, unspecified; E55.9 Vitamin D deficiency, unspecified
CPT/HCPCS: 36415; 80053; 80061; 82306; 83721; 84443; 85025

== ENCOUNTER 2020-03-21 08:00 | Outpatient (CLI) | payer MEDICARE, MEDICAID ==
[2020-03-21 12:44] LABS: BASOPHILS # (AUTO) 0.1 10^3/uL (0.0-0.1); BASOPHILS % (AUTO) 1.3 %; EOSINOPHILS # (AUTO) 0.1 10^3/uL (0.0-0.7); HCT - HEMATOCRIT 43.2 % (37.0-47.0); HGB - HEMOGLOBIN 14.6 g/dL (12.0-16.0); LYMPHOCYTES # (AUTO) 1.4 10^3/uL (1.5-3.5); MEAN CORPUSCULAR HEMOGLOBIN 35.2 pg (27.0-31.0); MEAN CORPUSCULAR HGB CONC 33.8 g/dL (32.0-36.0); MEAN CORPUSCULAR VOLUME 104.1 fL (81.0-99.0); MEAN PLATELET VOLUME 10.2 fL (7.9-10.8); MONOCYTES # (AUTO) 0.6 10^3/uL (0.0-1.0); MONOCYTES % (AUTO) 9.5 %; NEUTROPHILS # (AUTO) 3.9 10^3/uL (1.5-6.6); PLT - PLATELET COUNT 215 10^3/uL (130-450); RED BLOOD COUNT 4.15 10^6/uL (4.20-5.40); RED CELL DISTRIBUTION WIDTH 13.1 % (12.0-15.0)
[2020-03-21 13:12] LABS: ALBUMIN 4.1 g/dL (3.2-5.5); ALBUMIN/GLOBULIN RATIO 0.9 (1.0-2.2); ALKALINE PHOSPHATASE 102 IU/L (42-121); ALT ALANINE AMINOTRANSFERASE 44 IU/L (10-60); AST ASPARTATE AMINOTRANSFERASE 29 IU/L (10-42); BILIRUBIN,TOTAL 0.6 mg/dL (0.2-1.0); BUN - BLOOD UREA NITROGEN 14 mg/dL (6-20); CALCIUM 9.1 mg/dL (8.5-10.3); CARBON DIOXIDE - CO2 24 mmol/L (21-32); CHLORIDE 103 mmol/L (101-111); CHOL/HDL RATIO 3.7 (<4.4); CHOLESTEROL 190 mg/dL; CREATININE 0.9 mg/dL (0.4-1.0); GFR - MDRD 73 (>89); GLUCOSE 80 mg/dL (70-100); HDL CHOLESTEROL 52 mg/dL; SODIUM 136 mmol/L (135-145); TOTAL PROTEIN 8.6 g/dL (6.7-8.2); TRIGLYCERIDES 39 mg/dL
[2020-03-21 13:23] LABS: THYROID STIMULATING HORMONE 1.23 uIU/mL (0.34-5.60)
== END 2020-03-21 23:59 | disposition home or self-care (01) ==
LOC: LAB.WCP 08:00
PROVIDERS: ATTEND Internal Medicine
DX: Q90.9 Down syndrome, unspecified (principal); E78.5 Hyperlipidemia, unspecified; E03.9 Hypothyroidism, unspecified
CPT/HCPCS: 36415; 80053; 80061; 83721; 84443; 85025

== ENCOUNTER 2021-01-23 12:47 | Outpatient (CLI) | payer MEDICARE, MEDICAID | END 2021-01-23 12:48 | disposition home or self-care (01) | LOC: COV 12:47 | PROVIDERS: ATTEND Family Medicine | DX: U07.1 COVID-19 (principal) ==

== ENCOUNTER 2021-03-13 08:00 | Outpatient (CLI) | payer MEDICARE, MEDICAID ==
[2021-03-13 17:28] LABS: BASOPHILS # (AUTO) 0.1 10^3/uL (0.0-0.1); BASOPHILS % (AUTO) 1.4 %; EOSINOPHILS % (AUTO) 0.5 %; HCT - HEMATOCRIT 41.7 % (37.0-47.0); LYMPHOCYTES # (AUTO) 1.4 10^3/uL (1.5-3.5); LYMPHOCYTES % (AUTO) 24.8 %; MEAN CORPUSCULAR HEMOGLOBIN 35.2 pg (27.0-31.0); MEAN CORPUSCULAR HGB CONC 33.6 g/dL (32.0-36.0); MEAN CORPUSCULAR VOLUME 104.8 fL (81.0-99.0); MONOCYTES # (AUTO) 0.4 10^3/uL (0.0-1.0); MONOCYTES % (AUTO) 6.6 %; NEUTROPHILS # (AUTO) 3.8 10^3/uL (1.5-6.6); NEUTROPHILS % (AUTO) 66.4 %; PLT - PLATELET COUNT 236 10^3/uL (130-450); RED BLOOD COUNT 3.98 10^6/uL (4.20-5.40); RED CELL DISTRIBUTION WIDTH 14.1 % (12.0-15.0); WHITE BLOOD COUNT 5.7 x10^3/uL (4.8-10.8)
[2021-03-13 17:45] LABS: ALBUMIN 3.8 g/dL (3.2-5.5); ALBUMIN/GLOBULIN RATIO 0.8 (1.0-2.2); ALKALINE PHOSPHATASE 84 IU/L (42-121); ALT ALANINE AMINOTRANSFERASE 40 IU/L (10-60); AST ASPARTATE AMINOTRANSFERASE 31 IU/L (10-42); BILIRUBIN,TOTAL 0.7 mg/dL (0.2-1.0); BUN - BLOOD UREA NITROGEN 12 mg/dL (6-20); CALCIUM 8.8 mg/dL (8.5-10.3); CARBON DIOXIDE - CO2 24 mmol/L (21-32); CHLORIDE 101 mmol/L (101-111); CHOL/HDL RATIO 3.4 (<4.4); CHOLESTEROL 201 mg/dL; CREATININE 0.8 mg/dL (0.4-1.0); GFR - MDRD 83 (>89); GLUCOSE 80 mg/dL (70-100); HDL CHOLESTEROL 60 mg/dL; LDL CHOLESTEROL,CALCULATED 131 mg/dL; LDL/HDL RATIO 2.2 (<4.4); POTASSIUM 4.1 mmol/L (3.5-5.0); SODIUM 134 mmol/L (135-145); TOTAL PROTEIN 8.5 g/dL (6.7-8.2); TRIGLYCERIDES 52 mg/dL; VLDL CHOLESTEROL 10 mg/dL
[2021-03-13 19:05] LABS: THYROID STIMULATING HORMONE 1.29 uIU/mL (0.34-5.60)
== END 2021-03-13 23:59 | disposition home or self-care (01) ==
LOC: LAB.WCP 08:00
PROVIDERS: ATTEND Internal Medicine
DX: Q21.9 Congenital malformation of cardiac septum, unspecified (principal); I34.0 Nonrheumatic mitral (valve) insufficiency; E78.5 Hyperlipidemia, unspecified; D53.9 Nutritional anemia, unspecified; E55.9 Vitamin D deficiency, unspecified; E03.9 Hypothyroidism, unspecified
CPT/HCPCS: 36415; 80053; 80061; 83721; 84443; 85025

== ENCOUNTER 2021-04-04 19:49 | Emergency (ER) | payer MEDICARE, MEDICAID ==
[2021-04-04 20:04] VITALS: BP 129/82
--- NOTE | 2021-04-04 20:08 | ED Physician Documentation ---
PD HPI LOWER EXT INJURY - Stated complaint Stated Complaint: R LEG PX - Chief complaint Chief Complaint: Ext Problem - History obtained from History obtained from: Patient, Caregiver - Additional information Additional information: Patient is 35-year-old female coming from adult care at home with right leg pain. Endorses for pain behind her right knee. Accompanied by silver designer who reports history of left popliteal DVT as well as history of pulmonary emboli. Patient denies chest pain, shortness of breath, hemoptysis. 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 : None HEENT: None Psych: None Musculoskeletal: Scoliosis - Past Surgical History Past Surgical History: Yes Ortho: Other - Present Medications Home Medications: Ambulatory Orders Medication Instructions Recorded Confirmed Multivit, Iron, Min #4, FA 1 each PO DAILY 08/28/12 06/19/19 [Multichew Chewable Tablet] Cholecalciferol (Vitamin D3) 1 tab PO DAILY 09/15/14 06/19/19 [Vitamin D-3] Levothyroxine Sodium 1 tab PO DAILY 09/15/14 06/19/19 Medroxyprogesterone Acetate 150 mg IM ONCE 06/19/19 06/19/19 [Depo-Provera] Mirabegron [Myrbetriq] 50 mg PO DAILY 06/19/19 06/19/19 Ibuprofen [Motrin] 800 mg PO Q8H PRN #30 tablet 04/04/21 Ibuprofen [Motrin] 800 mg PO Q8H PRN #30 tablet 04/04/21 - Allergies Allergies/Adverse Reactions: Allergies Allergy/AdvReac Type Severity Reaction Status Date / Time adhesive AdvReac Rash Verified 04/04/21 20:04 - Social History Does the pt smoke?: No Smoking Status: Never smoker Does the pt drink ETOH?: No Does the pt have substance abuse?: No - Immunizations Immunizations are current?: Yes - POLST Patient has POLST: No PD ED PE NORMAL - Vitals Vital signs reviewed: Yes - General General: Alert and oriented X 3 - HEENT HEENT: Atraumatic - Respiratory Respiratory: No respiratory distress - Abdomen Abdomen: Normal bowel sounds PD ED PE EXPANDED - Extremities Extremities: Tenderness, Swelling, Right knee, Other (Tender palpable poplitel bursa without erythema or induration) Results - Vitals Vitals: Vital Signs - 24 hr 04/04/21 19:59 Temperature 36.4 C L Heart Rate 69 Respiratory 16 Rate Blood Pressure 129/82 H O2 Saturation 98 Oxygen O2 Source Room air PD MEDICAL DECISION MAKING - ED course Complexity details: re-evaluated patient, d/w patient ED course: Patient is a 35-year-old female with known intellectual disability presenting from adult [facility] with a silver designer with 1 day history of right leg pain. Patient is poor historian and full history is limited by this however patient has been noted to ambulate since reporting her pain. She does have history of DVT in her left lower extremity however is not currently on any anticoagulation. Clinical Resource Nurse Reports history of sedentary lifestyle with minimal physical activity. Physical exam did demonstrate some tenderness to the posterior aspect of her popliteal fossa consistent with popliteal bursa without indications of inflammation or bursitis. Ultrasonography was negative for any acute DVT. At this time will discharge with compression wrap and encourage a course of nonsteroidal anti-inflammatory medication. Otherwise clear return precautions and follow-up instructions given prior to discharge. Departure - Departure Disposition: 01 Home, Self Care Clinical Impression: Bursitis Condition: Good Instructions: ED Bursitis Prescriptions: Ibuprofen [Motrin] 800 mg PO Q8H PRN #30 tablet PRN Reason: PAIN &/OR FEVER Comments: Thank you for allowing us to care for Rosemarie today at [facility]. The ultrasound performed today did not show any acute blood clot. Her presentation is consistent with irritation to her posterior popliteal bursa, condition known as bursitis. There is some information attached in this discharge instructions about this condition. I recommend regular use of Urban wraps around the knee for compression as well as regular elevation of the knee and ice packs to the posterior aspect of the knee. I will be discharging her on a course of nonsteroidal anti-inflammatory medications to take at home. If it anytime she develops any new or worsening symptoms or if she develops any increasing swelling, tenderness, or palpable heat to the back of or around her knee please return to the emergency department immediately for further evaluation and treatment.
[2021-04-04] MEDS ORDERED: IBUPROFEN 600 MG TABLET PO STA (21:01)
--- NOTE | 2021-04-04 21:22 | Ultrasound Report ---
PROCEDURE: Duplex Ext Veins Right INDICATIONS: Pain, h/o DVT TECHNIQUE: Real-time imaging, as well as color and pulse Doppler interrogation, were performed of the lower extr emity deep veins from the inguinal ligament to the popliteal fossa. COMPARISON: 12/29/2017 and 11/23/2018. FINDINGS: The deep veins are normally compressible, and free of intraluminal thrombus. Color and pu lse Doppler demonstrate normal phasic intraluminal flow. There is normal augmentation response to di stal compression maneuver. IMPRESSION: No evidence of deep vein thrombosis involving the right lower extremity. Reviewed by: Sendy Lawler MD, PhD on 04/04/2021 9:21 PM PST Approved by: Sendy Lawler MD, PhD on 04/04/2021 9:21 PM PST Station ID: [id number]
== END 2021-04-04 21:27 | disposition home or self-care (01) ==
LOC: ED 19:49
DX: M71.561 Other bursitis, not elsewhere classified, right knee (principal); Z86.718 Personal history of other venous thrombosis and embolism; F79 Unspecified intellectual disabilities
CPT/HCPCS: 36415; 93971; 99283; 99284; A9270

== ENCOUNTER 2023-05-09 09:36 | Outpatient (CLI) | payer MEDICARE, MEDICAID ==
[2023-05-09 12:28] LABS: BASOPHILS # (AUTO) 0.1 10^3/uL (0.0-0.1); BASOPHILS % (AUTO) 1.7 %; EOSINOPHILS % (AUTO) 0.6 %; HCT - HEMATOCRIT 43.5 % (37.0-47.0); HGB - HEMOGLOBIN 14.1 g/dL (12.0-16.0); LYMPHOCYTES # (AUTO) 1.5 10^3/uL (1.5-3.5); MEAN CORPUSCULAR HEMOGLOBIN 34.4 pg (27.0-31.0); MEAN CORPUSCULAR HGB CONC 32.4 g/dL (32.0-36.0); MEAN CORPUSCULAR VOLUME 106.1 fL (81.0-99.0); MEAN PLATELET VOLUME 10.4 fL (7.9-10.8); MONOCYTES # (AUTO) 0.5 10^3/uL (0.0-1.0); MONOCYTES % (AUTO) 9.4 %; NEUTROPHILS # (AUTO) 2.7 10^3/uL (1.5-6.6); NEUTROPHILS % (AUTO) 57.1 %; PLT - PLATELET COUNT 207 10^3/uL (130-450); RED CELL DISTRIBUTION WIDTH 13.4 % (12.0-15.0); WHITE BLOOD COUNT 4.8 x10^3/uL (4.8-10.8)
[2023-05-09 12:48] LABS: ALBUMIN 3.9 g/dL (3.2-5.5); ALBUMIN/GLOBULIN RATIO 0.9 (1.0-2.2); ALKALINE PHOSPHATASE 82 IU/L (42-121); ALT ALANINE AMINOTRANSFERASE 18 IU/L (10-60); AST ASPARTATE AMINOTRANSFERASE 20 IU/L (10-42); BILIRUBIN,TOTAL 0.4 mg/dL (0.2-1.0); BUN - BLOOD UREA NITROGEN 15 mg/dL (6-20); CALCIUM 9.1 mg/dL (8.5-10.3); CARBON DIOXIDE - CO2 27 mmol/L (21-32); CHLORIDE 105 mmol/L (101-111); CHOL/HDL RATIO 3.4 (<4.4); CHOLESTEROL 186 mg/dL; CREATININE 0.8 mg/dL (0.6-1.3); GFR - MDRD 82 (>89); GLUCOSE 87 mg/dL (74-104); HDL CHOLESTEROL 55 mg/dL; LDL CHOLESTEROL,CALCULATED 120 mg/dL; LDL/HDL RATIO 2.2 (<4.4); POTASSIUM 4.2 mmol/L (3.5-4.5); SODIUM 138 mmol/L (135-145); TOTAL PROTEIN 8.4 g/dL (6.4-8.9); TRIGLYCERIDES 53 mg/dL (48-352); VLDL CHOLESTEROL 11 mg/dL
[2023-05-09 13:12] LABS: THYROID STIMULATING HORMONE 0.74 uIU/mL (0.34-5.60)
== END 2023-05-09 09:37 | disposition home or self-care (01) ==
LOC: LAB.N 09:36
PROVIDERS: ATTEND Internal Medicine
DX: E78.5 Hyperlipidemia, unspecified (principal); Z79.899 Other long term (current) drug therapy; D53.9 Nutritional anemia, unspecified; E03.9 Hypothyroidism, unspecified
CPT/HCPCS: 36415; 80053; 80061; 82607; 83721; 84443; 85025

== ENCOUNTER 2023-07-07 10:52 | Emergency (ER) | payer MEDICARE, MEDICAID ==
[2023-07-07 11:27] LABS: RAPID STREP SCREEN Negative (Negative)
[2023-07-07 11:33] VITALS: BP 146/75; O2SAT 95
--- NOTE | 2023-07-07 11:49 | ED Physician Documentation ---
PD HPI URI - Stated complaint Stated Complaint: THROAT PX - Chief complaint Chief Complaint: Heent - History obtained from History obtained from: Patient - Additional information Additional information: Patient is a 37-year-old female with a history significant for Down syndrome and prior DVT presenting for evaluation of sore throat cough and congestion starting last night. 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 Denies fever. Normal appetite and tolerating p.o. without issue. Denies chest pain or shortness of air. 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 : None HEENT: None Psych: None Musculoskeletal: Scoliosis - Past Surgical History Past Surgical History: Yes Ortho: Other - Present Medications Home Medications: Ambulatory Orders Medication Instructions Recorded Confirmed Multivit, Iron, Min #4, FA 1 each PO DAILY 08/28/12 06/19/19 [Multichew Chewable Tablet] Cholecalciferol (Vitamin D3) 1 tab PO DAILY 09/15/14 06/19/19 [Vitamin D-3] Levothyroxine Sodium 1 tab PO DAILY 09/15/14 06/19/19 Medroxyprogesterone Acetate 150 mg IM ONCE 06/19/19 06/19/19 [Depo-Provera] Mirabegron [Myrbetriq] 50 mg PO DAILY 06/19/19 06/19/19 Ibuprofen [Motrin] 800 mg PO Q8H PRN #30 tablet 04/04/21 - Allergies Allergies/Adverse Reactions: Allergies Allergy/AdvReac Type Severity Reaction Status Date / Time adhesive AdvReac Rash Verified 07/07/23 11:15 - Social History Does the pt smoke?: No Smoking Status: Never smoker Does the pt drink ETOH?: No Does the pt have substance abuse?: No - Immunizations Immunizations are current?: Yes - POLST Patient has POLST: No PD ED PE NORMAL - General General: Alert and oriented X 3, No acute distress, Well developed/nourished - HEENT HEENT: Atraumatic, Moist mucous membranes, Pharynx benign - Neck Neck: Supple, no meningeal sign - Cardiac Cardiac: RRR, Strong equal pulses - Respiratory Respiratory: No respiratory distress, Clear bilaterally - Abdomen Abdomen: Soft, Non tender - Derm Derm: Warm and dry - Neuro Neuro: Normal speech Results - Vitals Vitals: Vital Signs - 24 hr 07/07/23 07/07/23 11:06 11:59 Temperature 36.3 C L Heart Rate 83 Respiratory 17 17 Rate Blood Pressure 146/75 H O2 Saturation 95 Oxygen O2 Source Room air - Labs Labs: Laboratory Tests 07/07/23 07/07/23 11:10 11:50 Nasal Adenovirus (PCR) NOT DETECTED Nasal B. parapertussis DNA (PCR) NOT DETECTED Nasal Coronavir 229E PCR NOT DETECTED Nasal Coronavir HKU1 PCR NOT DETECTED Nasal Coronavir NL63 PCR NOT DETECTED Nasal Coronavir OC43 PCR NOT DETECTED Nasal Enterovir/Rhinovir PCR NOT DETECTED Nasal Influenza B PCR NOT DETECTED Nasal Influenza A PCR NOT DETECTED Nasal Parainfluen 1 PCR NOT DETECTED Nasal Parainfluen 2 PCR NOT DETECTED Nasal Parainfluen 3 PCR NOT DETECTED Nasal Parainfluen 4 PCR NOT DETECTED Nasal RSV (PCR) NOT DETECTED Nasal B.pertussis DNA PCR NOT DETECTED Nasal C.pneumoniae (PCR) NOT DETECTED Trino Human Metapneumo PCR NOT DETECTED Nasal M.pneumoniae (PCR) NOT DETECTED Nasal SARS-CoV-2 (PCR) NOT DETECTED Group A Strep Rapid Negative PD Medical Decision Making - ED course ED course: Patient with sore throat and congestion for 1 day. Vital signs are stable. No signs of peritonsillar abscess. Normal speech, normal trismus. Respiratory swab is pending. Strep test is negative. Patient counseled on continued supportive care as well as concerning symptoms to return for. Departure - Departure Disposition: 01 Home, Self Care Clinical Impression: URI (upper respiratory infection), Pharyngitis Condition: Stable Instructions: ED Pharyngitis Viral Comments: Your strep test is negative. Your respiratory panel is pending. This will check for COVID, influenza, RSV and a number of other common cold viruses. We will notify you if it is positive for COVID. Otherwise you can check the patient portal for your results. You should quarantine from others until you know your COVID result. Please continue with acetaminophen or ibuprofen as needed for fevers and body aches, plenty of fluids/hydration and rest. Return to the ER with any worsening symptoms such as difficulty breathing or vomiting. Forms: PCP List Discharge Date/Time: 07/07/23 12:00
[2023-07-07 14:15] LABS: B. PARAPERTUSSIS- RESP PCR PAN NOT DETECTED; B. PERTUSSIS- RESP PCR PANEL NOT DETECTED; C. PNEUMONIAE- RESP PCR PANEL NOT DETECTED; CORONAVIRUS 229E-RESP PCR NOT DETECTED; CORONAVIRUS HKU1-RESP PCR NOT DETECTED; CORONAVIRUS NL63-RESP PCR NOT DETECTED; CORONAVIRUS OC43-RESP PCR NOT DETECTED; HUMAN METAPNEUMOVIRUS NOT DETECTED; INFLUENZA A- RESP PCR PANEL NOT DETECTED; INFLUENZA B - RESP PCR PANEL NOT DETECTED; M. PNEUMONIAE- RESP PCR PANEL NOT DETECTED; PARAINFLUENZA VIRUS 1 NOT DETECTED; PARAINFLUENZA VIRUS 2 NOT DETECTED; PARAINFLUENZA VIRUS 3 NOT DETECTED; PARAINFLUENZA VIRUS 4 NOT DETECTED; RHINOVIRUS/ENTEROVIRUS NOT DETECTED; RSV- RESP PCR PANEL NOT DETECTED; SARS-CoV-2 -RESP PCR PANEL NOT DETECTED
== END 2023-07-07 12:00 | disposition home or self-care (01) ==
LOC: ED 10:52
DX: J02.9 Acute pharyngitis, unspecified (principal); Z11.52 Encounter for screening for COVID-19
CPT/HCPCS: 87070; 87430; 87633; 99283